=== PATIENT | female | born 1980 | race Caucasian/White ===

== ENCOUNTER 2019-01-11 10:59 | Emergency (ER) | payer OTHER ==
[2019-01-11 11:10] VITALS: BP 141/96
--- NOTE | 2019-01-11 11:26 | UC ---
Lower Extremity/Ankle HPI - HPI Summary HPI Summary: patient stepped on nail in October 2018 and injured L heel. she began walking on the ball of L foot after injury and within 3-4 days started having pain in 1st and second toes and ball of foot. over past 2-3 days pain is worse. pain is better while wearing shoe - History of Current Complaint Chief Complaint: UCLowerExtremity Stated Complaint: FOOT PAIN Time Seen by Provider: 01/11/19 11:15 Hx Obtained From: Patient Hx Last Menstrual Period: control ?: No Onset/Duration: Gradual Onset Severity Initially: Mild Severity Currently: Moderate Pain Intensity: 7 Aggravating Factor(s): Standing Alleviating Factor(s): Other - wearing shoe Able to Bear Weight: Yes - Risk Factors Gout Risk Factors: Negative - Allergies/Home Medications Allergies/Adverse Reactions: Allergies Allergy/AdvReac Type Severity Reaction Status Date / Time Penicillins Allergy Hives Verified 01/11/19 11:11 Home Medications: Home Medications Cholecalciferol (Vitamin D3) [Vitamin D3] 1,000 unit PO 01/11/19 [History] Vitamin B Complex CAP* [B Complex CAP*] 01/11/19 [History] PMH/Surg Hx/FS Hx/Imm Hx Previously Healthy: Yes - Surgical History Surgical History: None - Family History Known Family History: Positive: Other - no Hx of stroke or anuerysm Negative: Cardiac Disease, Hypertension, Diabetes - Social History Occupation: Employed Full-time - daycare Lives: With Family Alcohol Use: Weekly Substance Use Type: None Smoking Status (MU): Never Smoked Tobacco Have You Smoked in the Last Year: No - Immunization History Vaccination Up to Date: Yes Review of Systems All Other Systems Reviewed And Are Negative: Yes Constitutional: Positive: Negative Respiratory: Positive: Negative Cardiovascular: Positive: Negative Musculoskeletal: Positive: Other: - pain ball L foot, pain 2nd toe today. Negative: Decreased ROM Neurological: Positive: Negative Psychological: Positive: Negative Is Patient Immunocompromised?: No Physical Exam Triage Information Reviewed: Yes Appearance: Well-Appearing, No Pain Distress, Well-Nourished Vital Signs: Initial Vital Signs Temp 97.7 F 01/11/19 11:05 Pulse 96 01/11/19 11:05 Resp 16 01/11/19 11:05 BP 141/96 01/11/19 11:05 Pulse Ox 100 01/11/19 11:05 Vital Signs Reviewed: Yes Respiratory Exam: Normal Respiratory: Positive: Lungs clear Cardiovascular Exam: Normal Cardiovascular: Positive: RRR Musculoskeletal: Positive: Strength Intact, ROM Intact, Other: - no visible w= swelling or redness L foot/toes. there is point tenderness with manipulation 1st and second toes and MTP joints Neurological Exam: Normal Psychological Exam: Normal Skin Exam: Normal Diagnostics - Radiology No standard instances Radiology Interpretation Completed By: Radiologist - No acute fracture L foot Lower Extremity Course/Dx - Differential Dx/Diagnosis Differential Diagnosis/HQI/PQRI: Contusion, Fracture (Closed), Strain, Tendonitis Provider Diagnosis: Tendonitis of ankle or foot Discharge ED - Sign-Out/Discharge Documenting (check all that apply): Patient Departure All imaging exams completed and their final reports reviewed: Yes - No acute fracture L foot - Discharge Plan Condition: Good Disposition: HOME Patient Education Materials: Tendinitis (ED) Referrals: No Primary Care Phys,NOPCP [Primary Care Provider] - Vivien Abraham MD [Medical Doctor] - 5 Days (if no improvement foot pain) Additional Instructions: use ibuprofen 800mg 3 times a day (take with food) for 5-7 days wear a firm arch support shoe roll arch of foot over 12 oz frozen water bottle 3-4 times a day as we discussed - Billing Disposition and Condition Condition: GOOD Disposition: Home
== END 2019-01-11 12:15 | disposition home or self-care (01) ==
LOC: UCEAST 10:59
DX: M77.52 Other enthesopathy of left foot and ankle (principal); Z88.0 Allergy status to penicillin
CPT/HCPCS: 99212; G0463

== ENCOUNTER 2019-02-12 17:36 | Emergency (ER) | payer OTHER ==
[2019-02-12] MEDS: Morphine 4 MG/ML VIAL (1 ml) 4 MG/ML VIAL IV ONE ×2 (19:43→22:15)
[2019-02-12 19:47] LABS: ABS Basophils 0.1 10^3/ul (0-0.2); ABS Eosinophils 0.2 10^3/ul (0-0.6); ABS Lymphocytes 2.6 10^3/ul (1.0-4.8); ABS Monocytes 0.4 10^3/ul (0-0.8); Eosinophil % 2.5 %; Hematocrit 41 % (35-47); Hemoglobin 14.2 g/dL (12.0-16.0); Lymphocyte % 28.1 %; Mean Corpuscular HGB Conc 35 g/dL (31-36); Mean Corpuscular Hemoglobin 33 pg (27-31); Mean Corpuscular Volume 94 fL (80-97); Mean Platelet Volume 7.2 fL (7.4-10.4); Platelet Count 415 10^3/uL (150-450); Red Blood Count 4.34 10^6 /uL (3.70-4.87); Red Cell Distribution Width 12 % (10-15); White Blood Count 9.4 10^3/uL (3.5-10.8)
[2019-02-12 20:10] LABS: Albumin 4.3 g/dL (3.2-5.2); Albumin/Globulin Ratio 1.4 (1-3); C Reactive Protein 9.45 mg/L (<8.01); Calcium 9.6 mg/dL (8.6-10.3); EGFR African American 92.3 (>60); EGFR Non-African American 76.3 (>60); Globulin 3.1 g/dL (2-4); Potassium 3.5 mmol/L (3.5-5.0); Total Bilirubin 0.3 mg/dL (0.2-1.0); Total Protein 7.4 g/dL (6.4-8.9)
[2019-02-12] MEDS: Iohexol 300* (CONTRAST) 10 ML SDV IV ONE (20:50)
--- NOTE | 2019-02-12 21:05 | ED ---
Throat Pain/Nasal Congestion - HPI Summary HPI Summary: 38 year old female presents with right ear pain for past two weeks. originally started as a cold. was diagnosed with ear infection and TM perforation. was placed on zpack. not currently on any medications for the past couple days. developed pain behind right ear and worsening ear pain and headache on right over the past couple days. no fevers currently. has a follow up with ENT on sunday. no change in vision. has pain behind right eye. no sinus congestion. no neck stiffness. no sore throat. - History of Current Complaint Chief Complaint: EDEarPain Time Seen by Provider: 02/12/19 19:21 - Allergies/Home Medications Allergies/Adverse Reactions: Allergies Allergy/AdvReac Type Severity Reaction Status Date / Time Penicillins Allergy Hives Verified 02/12/19 17:41 PMH/Surg Hx/FS Hx/Imm Hx Endocrine/Hematology History: Denies: Hx Diabetes Cardiovascular History: Denies: Hx Hypertension Infectious Disease History: No Infectious Disease History: Denies: Traveled Outside the [place] in Last 30 Days - Family History Known Family History: Positive: Other - no Hx of stroke or anuerysm Negative: Cardiac Disease, Hypertension, Diabetes - Social History Alcohol Use: Occasionally Substance Use Type: Reports: None Smoking Status (MU): Never Smoked Tobacco Have You Smoked in the Last Year: No Review of Systems Negative: Fever Positive: Ear Ache Negative: Chest Pain Negative: Shortness Of Breath All Other Systems Reviewed And Are Negative: Yes Physical Exam Triage Information Reviewed: Yes Vital Signs On Initial Exam: Initial Vitals Temp Pulse Resp BP Pulse Ox 97.4 F 79 19 154/106 99 02/12/19 17:38 02/12/19 17:38 02/12/19 17:38 02/12/19 17:38 02/12/19 17:38 Vital Signs Reviewed: Yes Appearance: Positive: Well-Appearing Skin: Positive: Warm, Dry Head/Face: Positive: Normal Head/Face Inspection Eyes: Positive: Normal, EOMI, HALIE, Conjunctiva Clear ENT: Positive: Pharynx normal, Other - cholesteatoma of right ear, pain with manipulation of tragus, tenderness mastoid but no swelling noted. ears symmetric. Respiratory/Lung Sounds: Positive: Clear to Auscultation, Breath Sounds Present Cardiovascular: Positive: Normal, RRR Musculoskeletal: Positive: Normal Neurological: Positive: Normal Psychiatric: Positive: Normal Procedures - Sedation Patient Received Moderate/Deep Sedation with Procedure: No Diagnostics - Vital Signs Vital Signs Temp Pulse Resp BP Pulse Ox 02/12/19 19:43 18 02/12/19 17:38 97.4 F 79 19 154/106 99 - Laboratory Lab Results: Lab Results 02/12/19 02/12/19 Range/Units 19:42 19:42 WBC 9.4 (3.5-10.8) 10^3/uL RBC 4.34 (3.70-4.87) 10^6 /uL Hgb 14.2 (12.0-16.0) g/dL Hct 41 (35-47) % MCV 94 (80-97) fL MCH 33 H (27-31) pg MCHC 35 (31-36) g/dL RDW 12 (10-15) % Plt Count 415 (150-450) 10^3/uL MPV 7.2 L (7.4-10.4) fL Neut % (Auto) 64.2 % Lymph % (Auto) 28.1 % [place] % (Auto) 4.6 % Eos % (Auto) 2.5 % Baso % (Auto) 0.6 % Absolute Neuts (auto) 6.0 (1.5-7.7) 10^3/ul Absolute Lymphs (auto) 2.6 (1.0-4.8) 10^3/ul Absolute Monos (auto) 0.4 (0-0.8) 10^3/ul Absolute Eos (auto) 0.2 (0-0.6) 10^3/ul Absolute Basos (auto) 0.1 (0-0.2) 10^3/ul Absolute Nucleated RBC 0.0 10^3/ul Nucleated RBC % 0.0 Sodium 139 (135-145) mmol/L Potassium 3.5 (3.5-5.0) mmol/L Chloride 105 (101-111) mmol/L Carbon Dioxide 28 (22-32) mmol/L Anion Gap 6 (2-11) mmol/L BUN 16 (6-24) mg/dL Creatinine 0.84 (0.51-0.95) mg/dL Est GFR ( Amer) 92.3 (>60) Est GFR (Non-Af Amer) 76.3 (>60) BUN/Creatinine Ratio 19.0 (8-20) Glucose 89 (70-100) mg/dL Calcium 9.6 (8.6-10.3) mg/dL Total Bilirubin 0.30 (0.2-1.0) mg/dL AST 15 (13-39) U/L ALT 15 (7-52) U/L Alkaline Phosphatase 57 (34-104) U/L C-Reactive Protein 9.45 H (<8.01) mg/L Total Protein 7.4 (6.4-8.9) g/dL Albumin 4.3 (3.2-5.2) g/dL Globulin 3.1 (2-4) g/dL Albumin/Globulin Ratio 1.4 (1-3) Result Diagrams: 02/12/19 19:42 02/12/19 19:42 Lab Statement: Any lab studies that have been ordered have been reviewed, and results considered in the medical decision making process. - CT temporal CT Interpretation Completed By: Radiologist Summary of CT Findings: IMPRESSION: 1. Partial opacification of the right mastoid air cells and minimal partial opacification of the right middle ear cavity. Findings raise concern for otomastoiditis. 2. Regional soft tissues are without acute abnormality or drainable fluid collection. EENT Course/Dx - Course Course Of Treatment: 38 year old female presents with right ear pain for past two weeks. originally started as a cold. was diagnosed with ear infection and TM perforation. was placed on zpack. not currently on any medications for the past couple days. developed pain behind right ear and worsening ear pain and headache on right over the past couple days. no fevers currently. has a follow up with ENT on sunday. no change in vision. has pain behind right eye. no sinus congestion. no neck stiffness. no sore throat. on exam has pain with manipulation of tragus. ear is not asymmetrically. does have pain over mastoid. cholesteatoma seen with was confirmed by dr morales. CT shows partial opacification of right mastoid air cells. discussed case with dr owens will place on ciprodex again and ciprofloxcain oral. will have follow up with ENT as scheduled. patient understand and agrees with plan. - Differential Diagnoses Differential Diagnoses: Mastoiditis, Otitis Externa, Otitis Media - Diagnoses Provider Diagnoses: Cholesteatoma, Otitis externa Discharge ED - Sign-Out/Discharge Documenting (check all that apply): Patient Departure - Discharge Plan Condition: Good Disposition: HOME Prescriptions: Ciprofloxacin TAB* [Cipro 500 MG TAB*] 500 mg PO BID #13 tab HYDROcodone/ACETAMIN 5-325 MG* [Jenners 5-325 TAB*] 1 tab PO Q6H PRN #12 tab MDD 4 PRN Reason: Pain - Severe Patient Education Materials: Otitis Externa (ED) Referrals: Jared Owens MD [Medical Doctor] - Additional Instructions: use ciprodex four drops twice a day for 7 days use ciprofloxacin twice a day for 7 days take tyenlol or ibuprofen every 6 hours for pain, use norco for break through pain every 6 hours follow up with ENT as scheduled Return to ED if develop any new or worsening symptoms - Billing Disposition and Condition Condition: GOOD Disposition: Home
[2019-02-12] MEDS: Ciprofloxacin TAB* 500 MG PO ONE (22:30)
--- NOTE | 2019-02-12 22:31 | ED ---
Progress - Progress Note Progress Note: I saw and evaluated Ms. Mckeon with [facility]. The patient presented complaining of right ear pain, s/p treatment with po Azithromycin and Ciprodex otic by an outside facility. Course/Dx - Diagnoses Provider Diagnoses: Cholesteatoma Discharge ED - Sign-Out/Discharge Documenting (check all that apply): Patient Departure - Discharge Plan Condition: Stable Disposition: HOME Referrals: No Primary Care Phys,NOPCP [Primary Care Provider] - - Billing Disposition and Condition Condition: STABLE Disposition: Home - Attestation Statements Document Initiated by Scribe: No
[2019-02-12] MEDS: oxyCODONE/Acetamin 5/325 MG* TAB PO ONE (22:36)
[2019-02-12 22:40] VITALS: BP 151/92
== END 2019-02-12 22:34 | disposition home or self-care (01) ==
LOC: ED 17:36
DX: H71.91 Unspecified cholesteatoma, right ear (principal); H60.91 Unspecified otitis externa, right ear; Z88.0 Allergy status to penicillin
CPT/HCPCS: 36415; 70481; 80053; 85025; 86140; 87070; 87077; 87205; 87640; 87641; 96374; 96376; 99282; A9270-GY; J2270; Q9967

== ENCOUNTER 2019-06-23 13:19 | Emergency (ER) | payer OTHER ==
--- OUTSIDE RECORDS SUMMARY | 2019-06-23 13:27 | XMS REPORT | Continuity of Care Document ---
:1980 External Reference #:[id number] Author Name Yo Jacobs MD Address [address] [place] [address] Problems Description No Information Available Social History Type Date Description Comments Sex Unknown Tobacco Use Start: Unknown Never Smoked Cigarettes Tobacco Use Start: Unknown Never Smoked Cigars Tobacco Use Start: Unknown Never Smoked A Pipe Smoking Status Reviewed: 03/10/19 Never Smoked A Pipe Smokeless Tobacco Never Used Smokeless Tobacco ETOH Use Currently occasionally consumes alcohol Allergies, Adverse Reactions, Alerts Active Allergies Reaction Severity Comments Date Penicillin hives 02/13/2019 Medications Description No Active Medications Immunizations Description No Information Available Vital Signs Date Vital Result Comment 03/24/2019 9:14am Weight 208.00 lb Weight 94.349 kg Height 65 inches 5'5" Height in cm's 165.1 cm BMI (Body Mass Index) 34.6 kg/m2 03/10/2019 4:06pm Weight 208.00 lb Weight 94.349 kg Height 65 inches 5'5" Height in cm's 165.1 cm BMI (Body Mass Index) 34.6 kg/m2 Results Description No Information Available Procedures Date Code Description Status 03/07/2019 91239 Binocular Microscopy Completed 02/13/2019 76434 Binocular Microscopy Completed Medical Devices Description No Information Available Encounters Type Date Location Provider Dx Diagnosis Office Visit 03/24/2019 [facility]After Yo Jacobs H92.11 Otorrhea, right 9:15a 04/02/07 ear 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, right ear Office Visit 03/10/2019 [facility],After Yo Jacobs H92.11 Otorrhea, right 4:00p 04/02/07 ear 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, right ear Office Visit 03/07/2019 [facility] [place], Yo H92.11 Otorrhea, right 11:00a 04/02/07 MD ear 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, right ear Office Visit 02/21/2019 [facility] [place], Yo H92.11 Otorrhea, right 10:15a 04/02/07 MD ear 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, right ear Office Visit 02/13/2019 [facility] [place], Yo H92.11 Otorrhea, right 2:15p 04/02/07 MD ear 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, right ear Assessments Date Code Description Provider 03/24/2019 H92.11 Otorrhea, right ear [place], Yo ROCHA 03/24/2019 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, right [place] , Yo ROCHA ear 03/10/2019 H92.11 Otorrhea, right ear [place], Yo ROCHA 03/10/2019 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, right [place] , Yo ROCHA ear 03/07/2019 H92.11 Otorrhea, right ear [place], Yo ROCHA 03/07/2019 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, right [place] , Yo ROCHA ear 02/21/2019 H92.11 Otorrhea, right ear [place], Yo ROCHA 02/21/2019 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, right [place] , Yo ROCHA ear 02/13/2019 H92.11 Otorrhea, right ear [place], Yo ROCHA 02/13/2019 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, right [place] , Yo ROCHA ear Plan of Treatment 03/24/2019 - [place], Yo [id number] Otorrhea, right earComments:The ear looks improved, I suggest continuing observation for an additional 2 months we will discuss management of her perforation in the future.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, right ear Functional Status Description No Information Available Mental Status Description No Information Available Referrals Description No Information Available
[2019-06-23 13:37] VITALS: BP 144/92
--- NOTE | 2019-06-23 13:52 | UC ---
Back Pain HPI - HPI Summary HPI Summary: 39-year-old female presenting with mid lumbar back pain 2 days after she states she had 2 "tackle her dog to the ground to keep him from running away." Patient states she did not feel pain immediately but woke up the next morning with lower back pain. States this feels like the other times she has "thrown her back out." States pain is worse with any type of movement including walking and better with a certain sitting position. Describes pain as "lightning." Denies ever breaking her back or having surgery on her back. Denies any known swelling or bruising. Denies numbness and tingling. Denies saddle paresthesias. Denies bowel and bladder incontinence. States she has taken ibuprofen without relief. States that applying ice does help some. - History of Current Complaint Chief Complaint: UCBackPain Stated Complaint: BACK INJURY Hx Obtained From: Patient Hx Last Menstrual Period: does not get Pain Intensity: 9 Pain Scale Used: 0-10 Numeric - Allergies/Home Medications Allergies/Adverse Reactions: Allergies Allergy/AdvReac Type Severity Reaction Status Date / Time Penicillins Allergy Hives Verified 06/23/19 13:29 Home Medications: Home Medications Ibuprofen TAB* [Motrin TAB* 800 MG] 400 mg PO Q8H 06/14/18 [History Confirmed ] Cholecalciferol (Vitamin D3) [Vitamin D3] 1,000 unit PO DAILY 01/11/19 [History Confirmed 06/23/19] Vitamin B Complex CAP* [B Complex CAP*] 1 tab PO DAILY 01/11/19 [History Confirmed 06/23/19] Acetaminophen TAB* [Tylenol TAB*] 2 tab PO Q4H PRN 06/23/19 [History Confirmed 06/23/19] Cyclobenzaprine TAB* [Flexeril 10 MG TAB*] 10 mg PO BEDTIME PRN #7 tab 06/23/19 [Rx] Norethindrone-E.estradiol-Iron [Microgestin Fe 1-20 mg-Mcg] 1 tab PO DAILY 06/22 [History Confirmed 06/23/19] PMH/Surg Hx/FS Hx/Imm Hx Previously Healthy: Yes - Surgical History Surgical History: None - Family History Known Family History: Positive: Other - no Hx of stroke or anuerysm Negative: Cardiac Disease, Hypertension, Diabetes - Social History Alcohol Use: Occasionally Substance Use Type: None Smoking Status (MU): Never Smoked Tobacco Have You Smoked in the Last Year: No - Immunization History Vaccination Up to Date: Yes Review of Systems All Other Systems Reviewed And Are Negative: Yes Constitutional: Positive: Negative Skin: Positive: Negative Respiratory: Positive: Negative Cardiovascular: Positive: Negative Motor: Positive: Negative Musculoskeletal: Positive: Arthralgia - lumbar back pain, Decreased ROM - lumbar back. Negative: Edema Neurological/Mental Status: Positive: Negative. Negative: Paresthesia, Numbness Physical Exam - Summary Physical Exam Summary: Vital Signs Reviewed: Yes A+Ox3, no distress Eyes: Conjunctiva Clear ENT: Hearing grossly normal neck: supple Respiratory: Positive: No respiratory distress, No accessory muscle use Cardiovascular: skin color reflect adequate perfusion Musculoskeletal Exam: JESUS x 4, no TTP of lumbar back, lumbar back pain exacerbated by walking, bending over, and sitting, no erythema or ecchymosis, no edema, decreased ROM lower back Neurological: Positive: Alert, ambulatory without difficulty, sensation grossly intact Psychological: Positive: age appropriate behavior Skin: Positive: no rash, no ecchymosis Vital Signs: Initial Vital Signs Temp 97.6 F 06/23/19 13:30 Pulse 86 06/23/19 13:30 Resp 18 06/23/19 13:30 BP 144/92 06/23/19 13:30 Pulse Ox 99 06/23/19 13:30 Diagnostics - Radiology lumbar Radiology Interpretation Completed By: Radiologist Summary of Radiographic Findings: IMPRESSION: UNREMARKABLE RADIOGRAPHS OF THE LUMBAR SPINE Back Pain Course/Dx - Course Course Of Treatment: Lumbar radiograph unremarkable today. Discussed likely low back muscle strain and instructed to continue with OTC analgesics and resting. Provide patient with Flexeril for bedtime as needed. Instructed to return if symptoms do not improve within 2 weeks. Patient voiced understanding and agreed with the treatment plan. - Differential Dx/Diagnosis Provider Diagnosis: Lumbar strain Discharge ED - Sign-Out/Discharge Documenting (check all that apply): Patient Departure All imaging exams completed and their final reports reviewed: Yes - Discharge Plan Condition: Stable Disposition: HOME Prescriptions: Cyclobenzaprine TAB* [Flexeril 10 MG TAB*] 10 mg PO BEDTIME PRN #7 tab PRN Reason: Spasms - Back Patient Education Materials: Low Back Strain (ED) Additional Instructions: As discussed, your xrays did not show any abnormalities. Take Flexeril as prescribed for muscle spasms. Rest, ice, heat, and take ibuprofen as directed to help alleviate pain symptoms. Refrain from strenuous physical activity until pain has resolved. Return if symptoms do not improve within 1-2 weeks. - Billing Disposition and Condition Condition: STABLE Disposition: Home
== END 2019-06-23 15:02 | disposition home or self-care (01) ==
LOC: UCEAST 13:19
DX: S39.012A Strain of muscle, fascia and tendon of lower back, initial encounter (principal); X58.XXXA Exposure to other specified factors, initial encounter; Y93.89 Activity, other specified; Y92.9 Unspecified place or not applicable; Z88.0 Allergy status to penicillin
CPT/HCPCS: 72100; 99212; G0463